=== PATIENT | male | born 1990 | race African-American/Black ===

== ENCOUNTER 2018-10-16 19:47 | Emergency (ER) | payer SELFPAY ==
[~2018-10-16] VITALS: Ht 180.3 cm; Wt 74.5 kg
[2018-10-16 19:49] VITALS: BP 118/71
[2018-10-16] MEDS ORDERED: LIDOCAINE-MPF 1%, 5ML INFIL ONE (20:00)
[2018-10-16] MEDS ORDERED: SULFAMETH./TRIMETHOPRIM DS 800MG/160MG TABLET PO ONE (20:30)
[2018-10-16] MEDS ORDERED: CEPHALEXIN 500 MG CAPSULE PO ONE (20:30)
[2018-10-16] MEDS ORDERED: HYDROcodone/APAP 5/325 TABLET ONE (20:58)
[2018-10-16] MEDS ORDERED: SULFAMETH./TRIMETHOPRIM DS 800MG/160MG TABLET ONE (20:59)
[2018-10-16] MEDS ORDERED: CEPHALEXIN 500 MG CAPSULE ONE ×2 (20:59)
[2018-10-16] MEDS ORDERED: HYDROcodone/APAP 5/325 TABLET PO ONE (21:00)
== END 2018-10-16 21:09 | disposition home or self-care (01) ==
LOC: ED 20:45
DX: L02.01 Cutaneous abscess of face (principal); L73.9 Follicular disorder, unspecified
CPT/HCPCS: 10060; 99284